=== PATIENT | male | born 1945 | race Caucasian/White ===

== ENCOUNTER 2021-07-04 13:00 | Inpatient (IN) ==
[2021-07-04] MEDS ORDERED: 0.9 % Sodium Chloride 1,000 ML IVC ONE ×2 (13:21→14:02)
[2021-07-04 13:50] LABS: Hemoglobin 12.2 g/dL (12.9-16.9); Immature Granulocytes % 0.5 % (0-4); Mean Corpuscular Volume 98.7 fL (83.0-100.0); Red Cell Distribution Width 15.3 % (11.5-14.5)
[2021-07-04 13:51] LABS: White Blood Count 6.4 K/mcL (4.3-11.1)
[2021-07-04 13:52] LABS: Basophils % 0.5 %; Eosinophils # 0.1 K/mcL (0.0-0.6); Eosinophils % 0.9 %; Hematocrit 38.9 % (37.5-50.1); Immature Platelets 4.9 % (1.1-6.1); Lymphocytes # 1.2 K/mcL (0.6-4.6); Lymphocytes % 19.3 %; Mean Corpuscular HGB Conc 31.4 g/dL (31.6-35.5); Mean Platelet Volume 9.9 fL (9.4-12.4); Monocytes # 0.7 K/mcL (0.0-1.3); Monocytes % 10.3 %; Neutrophils # 4.4 K/mcL (1.6-8.9); Platelet Count 135 K/mcL (140-400); Red Blood Count 3.94 M/mcL (4.19-5.50); Segmented Neutrophils % 68.5 %
[2021-07-04] MEDS ORDERED: cefTRIAXone 1,000 MG in Water for inj. (sterile) 10 ML IVP ONE (14:03)
[2021-07-04 14:12] LABS: Calcium 7.7 mg/dL (8.6-10.3); Potassium 4.4 mEq/L (3.5-5.1); Troponin I 0.03 ng/mL (< 0.04)
[2021-07-04 15:00] LABS: Bilirubin,Urine Negative (Negative); Blood,Urine Moderate (Negative); Clarity,Urine Ex.Turbid (Clear); Color,Urine Yellow (Yellow); Glucose,Urine (UA) Normal (Normal); Ketones,Urine Negative (Negative); Leukocyte Esterase,Urine Large (Negative); Nitrite,Urine Positive (Negative); PH,Urine 6.5 pH Units (5.0-8.0); Protein,Urine 200 mg/dL (Neg-Trace); RBC,Urine 15-30 per hpf (0-3); Specific Gravity,Urine 1.024 (1.010-1.025); Squamous Epithelial Cell,Urine Few per hpf (None-Few); Urobilinogen,Urine Normal (Normal); WBC,Urine TNTC per hpf (0-3)
[2021-07-04] MEDS ORDERED: Naloxone 0.4 MG/ML INJ IVP PRN (16:17)
[2021-07-04] MEDS ORDERED: Ondansetron 4 MG/2 ML VIAL IVP PRN (16:17)
[2021-07-04] MEDS ORDERED: Acetaminophen 325 MG TABLET PO PRN (16:17)
[2021-07-04] MEDS ORDERED: Melatonin 3 MG TABLET PO PRN (16:17)
[2021-07-04] MEDS: Ipratropium/Albuterol Neb 3 ML IH PRN (19:45)
[2021-07-04] MEDS: Piperacillin/Tazobactam 3.375 GM in 0.9 % Sodium Chloride Mini Bag 100 ML IVPB SCH (20:57)
[2021-07-04] MEDS: 0.9 % Sodium Chloride 1,000 ML IVC SCH (20:57)
[2021-07-04] MEDS: Apixaban 5 MG TABLET PO SCH (21:16)
[2021-07-05 01:30] LABS: Mean Corpuscular Volume 99.1 fL (83.0-100.0); Red Cell Distribution Width 15.2 % (11.5-14.5)
[2021-07-05 01:32] LABS: Basophils % 0.4 %; Eosinophils # 0.2 K/mcL (0.0-0.6); Hematocrit 34.9 % (37.5-50.1); Immature Granulocytes % 0.4 % (0-4); Immature Platelets 4.6 % (1.1-6.1); Lymphocytes # 1.1 K/mcL (0.6-4.6); Lymphocytes % 19.1 %; Mean Corpuscular HGB Conc 31.5 g/dL (31.6-35.5); Mean Corpuscular Hemoglobin 31.3 pg (28.0-33.3); Mean Platelet Volume 10.8 fL (9.4-12.4); Monocytes # 0.6 K/mcL (0.0-1.3); Neutrophils # 3.8 K/mcL (1.6-8.9); Platelet Count 121 K/mcL (140-400); Red Blood Count 3.52 M/mcL (4.19-5.50); Segmented Neutrophils % 67.1 %; White Blood Count 5.6 K/mcL (4.3-11.1)
[2021-07-05 01:53] LABS: BUN/Creatinine Ratio 17 (6-26); Blood Urea Nitrogen 23 mg/dL (8-23); Calcium 7.4 mg/dL (8.6-10.3); Carbon Dioxide 25 mEq/L (23-29); Chloride 108 mEq/L (98-107); Glucose 106 mg/dL (70-105); Magnesium 1.7 mg/dL (1.6-2.6); Osmolality,Calculated 292 (280-300); Potassium 4.3 mEq/L (3.5-5.1); Sodium 139 mEq/L (136-145); eGFR For African Americans > 60 (> 60); eGFR For Non-African Americans 52 (> 60)
[2021-07-05] MEDS: Piperacillin/Tazobactam 3.375 GM in 0.9 % Sodium Chloride Mini Bag 100 ML IVPB SCH ×3 (04:26→21:26)
[2021-07-05] MEDS: Ipratropium/Albuterol Neb 3 ML IH PRN (04:28)
[2021-07-05] MEDS: 0.9 % Sodium Chloride 1,000 ML IVC SCH ×2 (07:24→17:00)
[2021-07-05] MEDS: Apixaban 5 MG TABLET PO SCH ×2 (07:57→21:25)
[2021-07-05 09:17] LABS: Adenovirus Not Detected (Not Detect); Bordetella Pertussis Not Detected (Not Detect); Chlamydophila pneumoniae Not Detected (Not Detect); Coronavirus 229E Not Detected (Not Detect); Coronavirus HKU1 Not Detected (Not Detect); Coronavirus NL63 Not Detected (Not Detect); Coronavirus OC43 Not Detected (Not Detect); Human Metapneumovirus Not Detected (Not Detect); Human Rhinovirus/Enterovirus Not Detected (Not Detect); Influenza A Subtype 2009 H1 Not Detected (Not Detect); Influenza B Not Detected (Not Detect); Mycoplasma pneumoniae Not Detected (Not Detect); Parainfluenza Virus 1 Not Detected (Not Detect); Parainfluenza Virus 2 Not Detected (Not Detect); Parainfluenza Virus 3 Not Detected (Not Detect); Parainfluenza Virus 4 Not Detected (Not Detect); Respiratory Syncytial Virus Not Detected (Not Detect); SARS-CoV-2 Not Detected (Not Detect)
[2021-07-05] MEDS ORDERED: Dextrose Gel 15 GM/37.5 ML TUBE PO PRN ×2 (10:59)
[2021-07-05] MEDS ORDERED: *HR* Dextrose 50 % in Water (Syg) 50 ML SYRINGE IVP PRN (10:59)
[2021-07-05] MEDS ORDERED: D5% in Water 1,000 ML IVC PRN (10:59)
[2021-07-05] MEDS: Insulin LISPRO 300 UNITS/3 ML VIAL SUBQ SCH ×2 (11:22→15:52)
[2021-07-05] MEDS: Ipratropium/Albuterol Neb 3 ML IH SCH ×3 (11:25→20:54)
[2021-07-06] MEDS: Ipratropium/Albuterol Neb 3 ML IH SCH ×7 (00:24→23:27)
[2021-07-06] MEDS: 0.9 % Sodium Chloride 1,000 ML IVC SCH (02:09)
[2021-07-06] MEDS: Piperacillin/Tazobactam 3.375 GM in 0.9 % Sodium Chloride Mini Bag 100 ML IVPB SCH (05:26)
[2021-07-06 06:35] LABS: Basophils % 0.4 %; Eosinophils # 0.1 K/mcL (0.0-0.6); Eosinophils % 2.2 %; Hematocrit 35.1 % (37.5-50.1); Immature Granulocytes % 0.4 % (0-4); Lymphocytes # 0.8 K/mcL (0.6-4.6); Lymphocytes % 16.4 %; Mean Corpuscular HGB Conc 31.3 g/dL (31.6-35.5); Mean Corpuscular Volume 98.9 fL (83.0-100.0); Mean Platelet Volume 10.5 fL (9.4-12.4); Monocytes # 0.4 K/mcL (0.0-1.3); Monocytes % 9.6 %; Neutrophils # 3.3 K/mcL (1.6-8.9); Platelet Count 135 K/mcL (140-400); Red Blood Count 3.55 M/mcL (4.19-5.50); Red Cell Distribution Width 14.7 % (11.5-14.5); White Blood Count 4.6 K/mcL (4.3-11.1)
[2021-07-06 06:56] LABS: BUN/Creatinine Ratio 16 (6-26); Blood Urea Nitrogen 14 mg/dL (8-23); Carbon Dioxide 23 mEq/L (23-29); Chloride 110 mEq/L (98-107); Glucose 111 mg/dL (70-105); Magnesium 1.8 mg/dL (1.6-2.6); Osmolality,Calculated 291 (280-300); Potassium 4.3 mEq/L (3.5-5.1); Sodium 140 mEq/L (136-145); eGFR For African Americans > 60 (> 60); eGFR For Non-African Americans > 60 (> 60)
[2021-07-06] MEDS: Insulin LISPRO 300 UNITS/3 ML VIAL SUBQ SCH ×3 (08:57→16:21)
[2021-07-06] MEDS: Apixaban 5 MG TABLET PO SCH ×2 (10:29→21:26)
[2021-07-06] MEDS ORDERED: levoFLOXacin 750 MG TABLET PO SCH (17:00)
[2021-07-06] MEDS: carvediloL 6.25 MG TABLET PO SCH (17:51)
[2021-07-06] MEDS: Budesonide/Formoterol 160/4.5 1 PUFF INH IH SCH (20:18)
[2021-07-06] MEDS: Gabapentin 300 MG CAPSULE PO SCH (21:26)
[2021-07-07 02:16] LABS: Hematocrit 32.1 % (37.5-50.1); Hemoglobin 10.5 g/dL (12.9-16.9); Mean Corpuscular HGB Conc 32.7 g/dL (31.6-35.5); Mean Corpuscular Hemoglobin 31.7 pg (28.0-33.3); Mean Platelet Volume 10.6 fL (9.4-12.4); Platelet Count 157 K/mcL (140-400); Red Blood Count 3.31 M/mcL (4.19-5.50); Red Cell Distribution Width 14.4 % (11.5-14.5); White Blood Count 4.6 K/mcL (4.3-11.1)
[2021-07-07 02:28] LABS: BUN/Creatinine Ratio 16 (6-26); Blood Urea Nitrogen 12 mg/dL (8-23); Carbon Dioxide 26 mEq/L (23-29); Chloride 107 mEq/L (98-107); Glucose 90 mg/dL (70-105); Magnesium 1.7 mg/dL (1.6-2.6); Osmolality,Calculated 285 (280-300); Potassium 4.1 mEq/L (3.5-5.1); Sodium 138 mEq/L (136-145); eGFR For African Americans > 60 (> 60); eGFR For Non-African Americans > 60 (> 60)
[2021-07-07] MEDS: Ipratropium/Albuterol Neb 3 ML IH SCH ×3 (04:15→11:32)
[2021-07-07] MEDS: Budesonide/Formoterol 160/4.5 1 PUFF INH IH SCH (08:00)
[2021-07-07] MEDS: Insulin LISPRO 300 UNITS/3 ML VIAL SUBQ SCH ×2 (08:25→12:59)
[2021-07-07] MEDS: carvediloL 6.25 MG TABLET PO SCH (08:27)
[2021-07-07] MEDS: Gabapentin 300 MG CAPSULE PO SCH (08:27)
[2021-07-07] MEDS: Apixaban 5 MG TABLET PO SCH (08:27)
[2021-07-07 12:02] VITALS: BP 113/71; PULSE 60; TEMP 98.7
[2021-07-07 14:06] VITALS: O2SAT 95
== END 2021-07-07 14:55 | disposition home or self-care (01) | DRG 690 ==
LOC: 2ANU 13:00 → EMEROOARM 13:00 → SUATTDRO 16:02 → 2ANU 18:48 → SUATTDRO 07-05 10:13
PROVIDERS: ADMIT Internal Medicine; ATTEND Internal Medicine

== ENCOUNTER 2022-01-18 12:36 | Observation (INO) ==
[2022-01-18 13:09] LABS: Bilirubin,Urine Negative (Negative); Blood,Urine Large (Negative); Clarity,Urine Ex.Turbid (Clear); Color,Urine Orange (Yellow); Glucose,Urine (UA) Normal (Normal); Ketones,Urine Trace mg/dL (Negative); Leukocyte Esterase,Urine Large (Negative); Nitrite,Urine Negative (Negative); Protein,Urine >=300 mg/dL (Neg-Trace); RBC,Urine TNTC per hpf (0-3); Specific Gravity,Urine 1.016 (1.010-1.025); Urobilinogen,Urine Normal (Normal); WBC,Urine TNTC per hpf (0-3)
[2022-01-18 13:28] LABS: Basophils % 0.2 %; Eosinophils % 0.2 %; Hematocrit 43.2 % (37.5-50.1); Hemoglobin 14.2 g/dL (12.9-16.9); Immature Granulocytes % 0.8 % (0-4); Lymphocytes # 0.9 K/mcL (0.6-4.6); Lymphocytes % 7.3 %; Mean Corpuscular HGB Conc 32.9 g/dL (31.6-35.5); Mean Corpuscular Hemoglobin 32.1 pg (28.0-33.3); Mean Corpuscular Volume 97.7 fL (83.0-100.0); Mean Platelet Volume 10.1 fL (9.4-12.4); Monocytes # 0.7 K/mcL (0.0-1.3); Monocytes % 5.7 %; Neutrophils # 10.1 K/mcL (1.6-8.9); Platelet Count 143 K/mcL (140-400); Red Blood Count 4.42 M/mcL (4.19-5.50); Red Cell Distribution Width 14.4 % (11.5-14.5); Segmented Neutrophils % 85.8 %; White Blood Count 11.8 K/mcL (4.3-11.1)
[2022-01-18 14:10] LABS: Albumin 2.9 g/dL (3.5-5.7); Albumin/Globulin Ratio 1.2 (1.1-2.2); Globulin 2.4 g/dL (2.4-3.5); Potassium 4.5 mEq/L (3.5-5.1); Total Protein 5.3 g/dL (6.4-8.9)
[2022-01-18] MEDS ORDERED: 0.9 % Sodium Chloride 250 ML IVC ONE (14:38)
[2022-01-18 15:15] LABS: Troponin I 0.04 ng/mL (< 0.04)
[2022-01-18] MEDS ORDERED: Ondansetron 4 MG/2 ML VIAL IVP PRN (15:27)
[2022-01-18] MEDS ORDERED: Acetaminophen 325 MG TABLET PO PRN (15:27)
[2022-01-18] MEDS ORDERED: Naloxone 0.4 MG/ML INJ IVP PRN (15:27)
[2022-01-18] MEDS ORDERED: Dextrose Gel 15 GM/37.5 ML TUBE PO PRN ×2 (15:32)
[2022-01-18] MEDS ORDERED: D5% in Water 1,000 ML IVC PRN (15:32)
[2022-01-18] MEDS ORDERED: *HR* Dextrose 50 % in Water (Syg) 50 ML SYRINGE IVP PRN (15:32)
[2022-01-18] MEDS ORDERED: *HR* HYDROcodone/Acet 5/325 mg TABLET PO PRN (15:33)
[2022-01-18] MEDS ORDERED: 0.9 % Sodium Chloride 1,000 ML IVC SCH (15:45)
[2022-01-18] MEDS: Ipratropium/Albuterol Neb 3 ML IH SCH ×2 (16:24→20:18)
[2022-01-18] MEDS ORDERED: carvediloL 6.25 MG TABLET PO SCH (17:00)
[2022-01-18] MEDS: Piperacillin/Tazobactam 3.375 GM in 0.9 % Sodium Chloride Mini Bag 100 ML IVPB SCH (17:26)
[2022-01-18 17:40] LABS: Estimated Average Glucose 137 mg/dl; Hemoglobin A1C 6.4 %
[2022-01-18] MEDS: Insulin LISPRO 300 UNITS/3 ML VIAL SUBQ SCH ×2 (18:27→21:27)
[2022-01-18] MEDS: Budesonide/Formoterol 160/4.5 1 PUFF INH IH SCH (20:18)
[2022-01-18] MEDS: Gabapentin 300 MG CAPSULE PO SCH (20:29)
[2022-01-18] MEDS: Apixaban 5 MG TABLET PO SCH (20:29)
[2022-01-18 21:06] LABS: INR 1.7; Prothrombin Time 19.2 Seconds (9.4-12.1)
[2022-01-18 21:09] LABS: Activated Partial Thrombo Time 37.7 Seconds (26.0-36.0)
[2022-01-19] MEDS: Piperacillin/Tazobactam 3.375 GM in 0.9 % Sodium Chloride Mini Bag 100 ML IVPB SCH ×2 (00:48→08:41)
[2022-01-19] MEDS: Ipratropium/Albuterol Neb 3 ML IH SCH ×4 (03:07→21:39)
[2022-01-19 05:27] LABS: Basophils % 0.2 %; Lymphocytes % 9.5 %; Red Blood Count 3.69 M/mcL (4.19-5.50); Red Cell Distribution Width 14.3 % (11.5-14.5)
[2022-01-19 05:29] LABS: Eosinophils # 0.1 K/mcL (0.0-0.6); Hematocrit 36.1 % (37.5-50.1); Hemoglobin 11.8 g/dL (12.9-16.9); Immature Granulocytes % 1.4 % (0-4); Lymphocytes # 0.8 K/mcL (0.6-4.6); Mean Corpuscular HGB Conc 32.7 g/dL (31.6-35.5); Mean Corpuscular Volume 97.8 fL (83.0-100.0); Mean Platelet Volume 10.4 fL (9.4-12.4); Monocytes # 0.5 K/mcL (0.0-1.3); Neutrophils # 7.1 K/mcL (1.6-8.9); Platelet Count 141 K/mcL (140-400); Segmented Neutrophils % 81.9 %; White Blood Count 8.7 K/mcL (4.3-11.1)
[2022-01-19 05:44] LABS: Albumin 2.6 g/dL (3.5-5.7); Albumin/Globulin Ratio 1.2 (1.1-2.2); Bilirubin,Total 1.4 mg/dL (0.3-1.0); Calcium 7.6 mg/dL (8.6-10.3); Chol/HDL Ratio 4.4 (0-4.9); Globulin 2.1 g/dL (2.4-3.5); Potassium 3.8 mEq/L (3.5-5.1); Total Protein 4.7 g/dL (6.4-8.9)
[2022-01-19] MEDS: Insulin LISPRO 300 UNITS/3 ML VIAL SUBQ SCH ×4 (07:43→21:00)
[2022-01-19] MEDS: Gabapentin 300 MG CAPSULE PO SCH ×3 (08:41→20:21)
[2022-01-19] MEDS: Apixaban 5 MG TABLET PO SCH ×2 (08:41→20:21)
[2022-01-19] MEDS ORDERED: Aspirin 81 MG TAB.CHEW PO SCH (09:00)
[2022-01-19] MEDS: Budesonide/Formoterol 160/4.5 1 PUFF INH IH SCH ×2 (11:13→21:39)
[2022-01-19] MEDS: Magnesium Oxide 400 MG TABLET PO SCH (13:07)
[2022-01-19] MEDS: cefTRIAXone 1,000 MG in Water for inj. (sterile) 10 ML IVP SCH (13:07)
[2022-01-19] MEDS ORDERED: 0.9 % Sodium Chloride 500 ML IV ONE (16:19)
[2022-01-19] MEDS ORDERED: Perflutren Lipid Microsphere 1.3 ML in 0.9 % Sodium Chloride 8.7 ML IVP PRN (16:23)
[2022-01-20 03:27] LABS: Basophils % 0.2 %; Eosinophils # 0.1 K/mcL (0.0-0.6); Eosinophils % 1.8 %; Hematocrit 35.1 % (37.5-50.1); Hemoglobin 11.6 g/dL (12.9-16.9); Immature Granulocytes % 0.7 % (0-4); Lymphocytes # 0.6 K/mcL (0.6-4.6); Lymphocytes % 12.6 %; Mean Corpuscular Hemoglobin 32.2 pg (28.0-33.3); Mean Corpuscular Volume 97.5 fL (83.0-100.0); Mean Platelet Volume 10.5 fL (9.4-12.4); Monocytes # 0.3 K/mcL (0.0-1.3); Monocytes % 6.2 %; Neutrophils # 3.5 K/mcL (1.6-8.9); Platelet Count 111 K/mcL (140-400); Red Cell Distribution Width 14.1 % (11.5-14.5); Segmented Neutrophils % 78.5 %; White Blood Count 4.5 K/mcL (4.3-11.1)
[2022-01-20] MEDS: Ipratropium/Albuterol Neb 3 ML IH SCH ×3 (04:22→16:04)
[2022-01-20 06:12] LABS: BUN/Creatinine Ratio 22 (6-26); Blood Urea Nitrogen 26 mg/dL (8-23); Calcium 7.7 mg/dL (8.6-10.3); Carbon Dioxide 28 mEq/L (23-29); Chloride 103 mEq/L (98-107); Glucose 109 mg/dL (70-105); Magnesium 1.9 mg/dL (1.6-2.6); Osmolality,Calculated 285 (280-300); Potassium 3.9 mEq/L (3.5-5.1); Sodium 135 mEq/L (136-145); eGFR For African Americans > 60 (> 60); eGFR For Non-African Americans > 60 (> 60)
[2022-01-20] MEDS: Insulin LISPRO 300 UNITS/3 ML VIAL SUBQ SCH ×3 (08:57→16:16)
[2022-01-20] MEDS ORDERED: CefTRIAXone 1,000 MG VIAL ONE (09:03)
[2022-01-20] MEDS: cefTRIAXone 1,000 MG in Water for inj. (sterile) 10 ML IVP SCH ×2 (09:14→09:20)
[2022-01-20] MEDS: Magnesium Oxide 400 MG TABLET PO SCH (09:16)
[2022-01-20] MEDS: Apixaban 5 MG TABLET PO SCH (09:16)
[2022-01-20] MEDS: Gabapentin 300 MG CAPSULE PO SCH ×2 (09:17→15:00)
[2022-01-20] MEDS: Budesonide/Formoterol 160/4.5 1 PUFF INH IH SCH (11:21)
[2022-01-20 12:16] VITALS: PULSE 71; TEMP 98.7; O2SAT 94
[2022-01-20 12:18] VITALS: BP 121/77
== END 2022-01-20 17:01 | disposition home or self-care (01) ==
LOC: EMEROOARM 12:36 → 3NENU 12:36 → SUATTDRO 14:57 → 3NENU 16:07
PROVIDERS: ADMIT Family Medicine; ATTEND Internal Medicine